=== PATIENT | male | born 1960 | race Caucasian/White ===

== ENCOUNTER 2021-02-01 02:40 | Inpatient (IN) | payer OTHER ==
[~2021-02-01] VITALS: Ht 182.9 cm; Wt 67.1 kg
[2021-02-01 18:18] LABS: HEMOGLOBIN 14.1 gm/dl (14.0-17.5); RED BLOOD COUNT 4.78 M/UL (4.20-5.50); WHITE BLOOD COUNT 13.1 K/UL (4.5-11.0)
[2021-02-01 18:44] LABS: BUN/CREATININE RATIO 27 (0-10)
[2021-02-02 06:51] LABS: HEMOGLOBIN 12.7 gm/dl (14.0-17.5); RED BLOOD COUNT 4.33 M/UL (4.20-5.50)
[2021-02-02 07:28] LABS: WHITE BLOOD COUNT 7.9 K/UL (4.5-11.0)
[2021-02-02 07:50] LABS: BUN/CREATININE RATIO 26 (0-10)
--- NOTE | 2021-02-02 15:16 | NUR ---
pt noted drinking a monster energy drink family had brought to him. Explained importance of not drinking energy drinks with voiced understaning.
[2021-02-03 03:06] LABS: HEMOGLOBIN 11.9 gm/dl (14.0-17.5); RED BLOOD COUNT 4.16 M/UL (4.20-5.50)
[2021-02-03 03:12] LABS: WHITE BLOOD COUNT 5.2 K/UL (4.5-11.0)
[2021-02-03 03:33] LABS: BUN/CREATININE RATIO 18 (0-10)
--- NOTE | 2021-02-04 02:10 | NUR ---
2130 PATIENT TRANSFERED TO [facility] FROM [facility].
--- NOTE | 2021-02-04 03:11 | NUR ---
CONTACTED DR GONZALEZ REGARDING PATIENTS BP 166/92. RECIEVED VERBAL TELEPHONE ORDER TO TREAT WITH 0.1MG CLONODINE ONCE. WILL CONTINUE TO MONITOR PARIENT.
[2021-02-04 03:44] LABS: HEMOGLOBIN 12.4 gm/dl (14.0-17.5); RED BLOOD COUNT 4.32 M/UL (4.20-5.50)
[2021-02-04 03:45] LABS: WHITE BLOOD COUNT 6.9 K/UL (4.5-11.0)
[2021-02-04 04:11] LABS: BUN/CREATININE RATIO 16 (0-10)
[2021-02-04 17:09] LABS: ORGANISM ID Not indicated. (.); SPECIMEN SOURCE Urine (.); STREPTOCOCCUS PNEUMONIAE AG Negative (Negative)
[2021-02-04 17:09] LABS: ANTIMYELOPEROXIDASE (MPO) ABS <9.0 U/mL (0.0-9.0); ANTIPROTEINASE 3 (PR-3) ABS 14.1 U/mL (0.0-3.5); ATYPICAL PANCA <1:20 titer (Neg:<1:20); CYTOPLASMIC (C-ANCA) <1:20 titer (Neg:<1:20); PERINUCLEAR (P-ANCA) <1:20 titer (Neg:<1:20)
[2021-02-05 06:47] LABS: HEMOGLOBIN 12.1 gm/dl (14.0-17.5); RED BLOOD COUNT 4.17 M/UL (4.20-5.50); WHITE BLOOD COUNT 12.2 K/UL (4.5-11.0)
[2021-02-05 07:09] LABS: BUN/CREATININE RATIO 18 (0-10)
[2021-02-05] MEDS ORDERED: MEDROL DOSEPAK 24 MG PO (08:45)
[2021-02-05] MEDS ORDERED: ASPIRIN EC81 MG PO (08:45)
[2021-02-05] MEDS ORDERED: LEVOFLOXACIN500 MG PO (08:45)
[2021-02-05] MEDS ORDERED: LISINOPRIL10 MG PO (08:45)
[2021-02-05] MEDS ORDERED: LOPRESSOR 25 MG25 MG PO (08:45)
[2021-02-05] MEDS ORDERED: ATORVASTATIN CA20 MG PO (08:45)
== END 2021-02-05 14:56 | disposition home or self-care (01) | DRG 896 ==
LOC: PROG CARE 02:40 → M/S 16:47 → PROG CARE 16:47 → M/S 02-03 21:30
PROVIDERS: Nurse Practitioner Family; ADMIT Internal Medicine
PROC: B24BZZZ Ultrasonography of Heart with Aorta (ICD-10-PCS; principal; 2021-02-02)
DX: F19.10 Other psychoactive substance abuse, uncomplicated (principal); I21.4 Non-ST elevation (NSTEMI) myocardial infarction; J18.9 Pneumonia, unspecified organism; R04.2 Hemoptysis; J44.0 Chronic obstructive pulmonary disease with (acute) lower respiratory infection; I42.9 Cardiomyopathy, unspecified; N17.9 Acute kidney failure, unspecified; E87.6 Hypokalemia; J20.9 Acute bronchitis, unspecified; I10 Essential (primary) hypertension; I07.1 Rheumatic tricuspid insufficiency; I27.20 Pulmonary hypertension, unspecified; Z87.891 Personal history of nicotine dependence; Z80.1 Family history of malignant neoplasm of trachea, bronchus and lung; Z82.49 Family history of ischemic heart disease and other diseases of the circulatory system; Z79.82 Long term (current) use of aspirin; Z91.14 Patient's other noncompliance with medication regimen; Z98.890 Other specified postprocedural states
CPT/HCPCS: ECHO; 36415; 71045; 71250; 78452; 80048; 80053; 80307; 81001; 82550; 82553; 82962; 83036; 83520; 83735; 83880; 84132; 84443; 84484; 85025; 85027; 85610; 85652; 85730; 86140; 86256; 87040; 87070; 87086; 87205; 87278; 87899; 93005; 93017; 93306; 94640; 94664; 94760; 97161; 97165; A9502; J1644; J2270; J2543; J2785; J2920; J7030; Q0177